=== PATIENT | female | born 1965 | race Caucasian/White ===

== ENCOUNTER → 2019-01-26 | Outpatient (REF) | payer BC, OTHER ==
[~2019-01-26] MED LIST: CETI10CH PO; CYMB60CA3 PO; OMEP40CA2 PO; PROAAER10 INH; PROBCAP4 PO; SIMV20TA2 PO; SYMB80INH INH; TIOT18INH INH
== END ==
LOC: M SFHCPLAZ 16:59
PROVIDERS: ATTEND Dermatology
DX: D48.2 Neoplasm of uncertain behavior of peripheral nerves and autonomic nervous system (principal)

== ENCOUNTER → 2020-05-29 | Outpatient (CLI) | payer SELFPAY ==
[~2020-05-29] MED LIST changes: -OMEP40CA2 PO; +OMEP40CA97 PO; -SIMV20TA2 PO; +SIMV20TA22 PO
== END ==
LOC: M LABSMTC 14:38
PROVIDERS: ATTEND Pediatrics
DX: Z20.828 Contact with and (suspected) exposure to other viral communicable diseases (principal)

== ENCOUNTER → 2020-06-04 | Outpatient (CLI) | payer BC, OTHER ==
--- NOTE | 2020-06-05 08:33 | REP ---
INDICATION: NICOTINE DEPENDENCE COMPARISON: None. TECHNIQUE: Axial noncontrast images from the thoracic inlet to the upper abdomen using low-dose lung screening technique (LDCT). FINDINGS: Few small 2 mm nodules are appreciated. No further significant consolidation or suspicious nodule/mass lesion. No effusion. No pneumothorax. IMPRESSION: Lung-RADS category 2 with small scattered nodules less than 4 mm. Management recommendations include annual low-dose CT surveillance. <Electronically signed by Ramin Tenorio > 06/05/20 0335
== END ==
LOC: M RAD 12:47
PROVIDERS: ATTEND Nurse Practitioner Family
DX: Z12.2 Encounter for screening for malignant neoplasm of respiratory organs (principal); F17.218 Nicotine dependence, cigarettes, with other nicotine-induced disorders; J44.9 Chronic obstructive pulmonary disease, unspecified

== ENCOUNTER → 2020-09-28 | Outpatient (REF) | LOC: M LABSMTC 12:18 | PROVIDERS: ATTEND Pediatrics | DX: Z11.52 Encounter for screening for COVID-19 (principal) ==

== ENCOUNTER → 2022-08-27 | Outpatient (CLI) | payer BC, OTHER ==
[~2022-08-27] MED LIST changes: -CYMB60CA3 PO; +CYMB60CA4 PO; +OMEP40CA4 PO; -OMEP40CA97 PO
== END ==
LOC: M RAD 15:02
PROVIDERS: ATTEND Nurse Practitioner Family
DX: R91.8 Other nonspecific abnormal finding of lung field (principal); J43.9 Emphysema, unspecified; F17.218 Nicotine dependence, cigarettes, with other nicotine-induced disorders

== ENCOUNTER → 2023-10-08 | Outpatient (CLI) | payer BC, OTHER | LOC: M RAD 09:50 | PROVIDERS: ATTEND Nurse Practitioner Family | DX: Z87.891 Personal history of nicotine dependence (principal) ==